=== PATIENT | female | born 1965 | race Caucasian/White ===

== ENCOUNTER 2016-12-23 01:17 | Inpatient (IN) ==
[2016-12-23 02:31] LABS: MANUAL DIFF NEEDED? NO
[2016-12-23 02:55] LABS: AGAP 16; ALBUMIN 3.9 g/dL (3.5-5.0); ALKALINE PHOSPHATASE 86 U/L (32-104); BASO% 0.2 % (0.0-0.8); BUN 14 mg/dL (8-22); CHLORIDE 92 mmol/L (98-107); COSMO 281; EOS# 0.03 X1000 (0.0-0.7); EOS% 0.3 % (0.0-10.0); GOT 39 U/L (10-30); GPT 40 U/L (10-36); HEMATOCRIT 40.2 % (37.0-47.0); HEMOGLOBIN 14.2 g/dL (12.0-16.0); IMM GRAN# 0.02 X1000 (0.0-0.04); IMM GRAN% 0.2 % (0.0-0.5); LYMPH# 1.32 X1000 (1.2-3.4); LYMPH% 11.1 % (20.5-51.1); MCH 31.1 PG (27-31); MCHC 35.3 g/dL (33-37); MONO# 0.49 X1000 (0.11-0.59); MONO% 4.1 % (1.7-9.3); MPV 10.4 FL (7.4-10.4); NEUT% 84.1 % (42.2-75.2); PLT 178 X1000 (130-400); POTASSIUM 3.6 mmol/L (3.5-5.1); RBC 4.57 XMIL (4.2-5.4); SODIUM 132 mmol/L (136-145); TCO2 24 mmol/L (25-35); TOTAL PROTEIN 7.2 g/dL (6.3-8.3)
[2016-12-23] MEDS ORDERED: PERCOCET-5 PO ONE (03:01)
[2016-12-23] MEDS ORDERED: ZOFRAN ONE (03:17)
[2016-12-23] MEDS ORDERED: ZOFRAN IV ONE (03:23)
[2016-12-23] MEDS ORDERED: MORPHINE IV ONE (03:24)
[2016-12-23] MEDS ORDERED: HUMULIN R SUBQ ONE (04:04)
[2016-12-23] MEDS ORDERED: VANCOMYCIN IV PER PHARMACY MISC SCH (04:15)
--- NOTE | 2016-12-23 04:19 | PROVIDER DOCUMENTATION ---
This chart was entered by Felicia Martinez Scribe, acting as scribe for Srikanth Echavarria MD. HPI-General Adult - General Chief Complaint: Fever Stated Complaint: ARM PAIN Time Seen by Provider: 12/23/16 02:14 Source: patient Allergies/Adverse Reactions: Patient Allergies Allergy/AdvReac Type Severity Reaction Status Date / Time adhesive Allergy HIVES Verified 12/23/16 01:57 Latex, Natural Rubber Allergy RASH Verified 12/23/16 01:57 Home Medications: Home Medication List Medication Instructions Recorded Confirmed Last Taken Type LISINOpril [Prinivil] 10 mg PO DAILY 10/06/12 05/03/16 04/27/16 07:30 History Aspirin 81 mg PO DAILY 03/19/13 05/03/16 04/27/16 07:30 History Metformin E.r. [Glucophage Xr] 1,000 mg PO QAM 04/13/15 05/03/16 04/27/16 07:30 History Metformin E.r. [Glucophage Xr] 500 mg PO WSUPPER 04/13/15 05/03/16 04/26/16 20: 30 History Metoprolol [Lopressor] 25 mg PO BID 07/26/15 05/03/16 04/27/16 07:30 History ATORVAstatin [Lipitor] 20 mg PO QHS #30 tablet 04/29/16 05/03/16 Unknown Rx CefTRIAXONE 2 GM/NS [Rocephin 2 2 gm IV DAILY #1 ivpb 04/29/16 05/03/16 Unknown Rx gm/Ns] Insulin Glargine [Lantus] 30 unit SUBQ QHS #1 insuln.pen 04/29/16 05/03/16 Unknown Rx Magnesium Oxide [Mag-Ox] 800 mg PO BID #60 tablet 04/29/16 05/03/16 Unknown Rx Vancomycin/0.9 % Sod Chloride 2 gm IV DAILY #1 plast..bag 04/29/16 05/03/16 Unknown Rx [Vancomycin-0.9% NaCl 2 G/500] - History of Present Illness -Gen Adult Nature of Presenting Problems: pt is a 51 year old female who came to the ED with a cc of fever and N/V and left arm swelling. pt reports she has a hx of mastectomy in 2009. Pt reports she has a hx of cellulitis in her left arm. Location of Pain/Injury: reports: upper extremity (left arm) Pain Radiation: reports: no radiation Quality of Pain: reports: none Onset/Duration: reports: just prior to arrival Timing: reports: still present Context/Activities at Onset: reports: none Modifying Factors: improves with: nothing Associated Symptoms: reports: nausea, vomiting, weakness Similar Symptoms Previously?: No Recently seen or treated by another doctor?: No Review of Systems - Adult - REVIEW OF SYSTEMS - ADULT Constitutional: reports: chills, fever. denies: fatique, weight loss Ears, Nose, Mouth & Throat: denies: ear pain, loose teeth Respiratory: denies: cough, shortness of breath Gastrointestinal: reports: nausea, vomiting. denies: abdominal pain, difficulty swallowing, frequent heartburn Integumentary: reports: other (swelling of the left arm). denies: mole changes , nail changes Past History - Adult - PAST MEDICAL HISTORY-ADULT Review of Records: reports: Old Records Reviewed, Nursing Assessment Review, Medications Reviewed, Social history reviewed & non-contributory. Major Childhood Illnesses: reports: denies history Cardiovascular: reports: HTN Respiratory: reports: denies history Gastrointestinal: reports: denies history Obstetrical/Gynecological: reports: denies history Genitourinary: reports: denies history Musculoskeletal: reports: denies history Neurological: reports: denies history Endocrine/Immune: reports: Diabetes Other Conditions: reports: denies history - PRIOR SURGERIES/PROCEDURES Surgical/Procedure History: reports: cholecystectomy, hysterectomy, other ( bilateral mastectomy) - IMMUNIZATION STATUS Childhood Immunizations: See Nurse Assessment Flu Vaccine: See Nurse Assessment - FAMILY HISTORY Family History: reviewed, not pertinent Physical Exam-General - PHYSICAL EXAM-ADULT Initial Vital Signs Reviewed: Yes - CONSTITUTIONAL General Appearance: alert, mild distress - EYES Eyes: PERRL/EOMI, pink conjunctivae - HEAD, EARS, NOSE, MOUTH & THROAT HENMT: normocephalic/atraumatic, moist mucous membranes, normal ENT inspection - NECK Neck: supple, normal inspection - RESPIRATORY Respiratory: chest non-tender, lungs clear, normal breath sounds - CARDIOVASCULAR Cardiovascular: normal peripheral pulses, regular rate, rhythm, no edema - GASTROINTESTINAL (ABDOMEN) Abdominal Exam: normal bowel sounds, non tender, soft - LYMPHATIC Lymphatic: no adenopathy - MUSCULOSKELETAL Back Exam: normal inspection, no CVA tenderness, no vertebral tenderness Extremity: normal range of motion, swelling (left arm) - SKIN Integumentary: normal color, normal turgor, warm/dry - NEUROLOGIC Neurologic: grossly normal, no motor/sensory deficits - PSYCHIATRIC Psych/Mental Status: normal mood/affect, normal thought content, normal thought process, oriented x 3 Progress - PLAN OF CARE/RESULTS Progress/Plan/Lab Results: Vital Signs - 8 hr 12/23/16 01:25 Temperature 100.1 F H Pulse Rate 110 H Respiratory Rate 20 Blood Pressure 153/86 O2 Sat by Pulse Oximetry 97 Orders Category Date Time Status BLOOD CULTURE [BLDCUL] Stat Lab 12/23/16 02:05 Ordered CBC WITH ELECTRONIC DIFF [HEME] Stat Lab 12/23/16 02:05 Received COMPREHENSIVE METABOLIC PANEL [CHEM] Stat Lab 12/23/16 02:05 Received Result Diagrams: 12/23/16 02:05 12/23/16 02:05 Departure - Departure Date of Disposition Decision: 12/23/16 Time of Disposition Decision: 04:17 DIAGNOSIS: Bacteremia associated with intravascular line Qualifiers: Encounter type: initial encounter Qualified Code(s): T82.7XXA - Infection and inflammatory reaction due to other cardiac and vascular devices, implants and grafts, initial encounter; R78.81 - Bacteremia Disposition: ADMITTED INPATIENT 09 Certified Medical Emergency: Emergent Condition: Fair Referrals and Follow-Ups: Carlo Pace MD [Primary Care Provider] - - Critical Care Note This patient required my direct & personal management of CC.: No This chart was documented by the indicated scribe, (Felicia Martinez Scribe) and accurately reflects the services I performed and decisions made by me, Srikanth Echavarria MD, as attested by the provider's signature.
[2016-12-23 04:57] LABS: URINE MICRO REVIEW NEEDED? NO; URINE SOURCE CLEAN CATCH
[2016-12-23] MEDS ORDERED: VANCOMYCIN 2,000 MG in NS 500 ML IV ONE (05:00)
[2016-12-23 05:07] LABS: BILIRUBIN URINE NEGATIVE (NEGATIVE); BLOOD URINE NEGATIVE (NEGATIVE); COLOR YELLOW; GLUCOSE URINE >1000 mg/dL (NEGATIVE); LEUKOCYTES URINE TRACE (NEGATIVE); NITRITE URINE NEGATIVE (NEGATIVE); PH URINE 6.5; PROTEIN URINE NEGATIVE (NEGATIVE); SP GRAVITY URINE 1.017; TURBIDITY URINE CLEAR (CLEAR); UROBILINOGEN URINE NORMAL (NORMAL)
[2016-12-23 05:08] LABS: UR EPITHELIAL CELLS <10 /HPF (<10); URINE BACTERIA 1+ /HPF; URINE CULTURE NEEDED? YES; URINE RBC <10 /HPF (<10); URINE WBC <10 /HPF (<10)
[2016-12-23] MEDS ORDERED: NS 1,000 ML IV ONE (05:13)
[2016-12-23] MEDS ORDERED: ZOFRAN IV PRN (06:15)
[2016-12-23 06:17] LABS: INR 1.01; PROTIME 10.6 Seconds (9.2-11.7); PTT 26.4 Seconds (22.0-36.0)
[2016-12-23 06:24] LABS: HEMOGLOBIN A1C 9.6 % (4.8-6.0)
[2016-12-23] MEDS: HUMALOG SUBQ SCH ×4 (06:50→20:46)
[2016-12-23] MEDS: CLINDAMYCIN 600 MG/NS 600 MG/50 ML IVPB IV SCH ×2 (08:22→13:20)
[2016-12-23] MEDS: TYLENOL PO PRN ×2 (08:22→15:51)
[2016-12-23] MEDS: LOPRESSOR PO SCH ×2 (08:22→20:35)
[2016-12-23] MEDS: ASPIRIN PO SCH (08:22)
[2016-12-23] MEDS: NS 1,000 ML IV SCH ×2 (08:23→20:50)
[2016-12-23] MEDS: MAG-OX PO SCH ×2 (08:23→20:35)
[2016-12-23] MEDS: PRINIVIL PO SCH (08:23)
--- NOTE | 2016-12-23 14:41 | HISTORY AND PHYSICAL ---
PRIMARY CARE PROVIDERS: Dr. Carlo Pace. CHIEF COMPLAINT: Fever, erythema and swelling to left upper extremity. HISTORY OF PRESENT ILLNESS: Ms Ramirez is a 51-year-old female, with past medical history most notable for breast cancer for which she had a double mastectomy with lymph node removal performed. Since then, the patient has had problems with lymphedema as well as a recurrent left upper extremity cellulitis. She reports that for the past few weeks she has noticed some increased swelling in her left upper extremity. She states that she noticed that she had increased pain, erythema and fever onset yesterday at approximately 10 p.m. The patient stated that since she knew she had a history of having cellulitis that she decided to go ahead and come on in for further evaluation. Other than these symptoms, she does report that her fingerstick blood sugars have been somewhat uncontrolled and that she has had polydipsia and polyuria. She denies any dizziness, shortness of breath, cough chest pain, abdominal pain , nausea, vomiting, diarrhea, or constipation. She denies any dysuria or urinary frequency. The patient does have some chronic swelling in her bilateral lower extremities. She states that this is not any worse at this time. She did report a headache upon arrival to the ER but after being given Percocet as well as morphine this has improved at this time. Upon my evaluation in the ER, the patient was found to have some mild leukocytosis. Her left upper extremity was found to have warmth, erythema, swelling and tenderness noted. Blood cultures have been obtained. She has been given a dose of vancomycin in the ER. At this time we will admit the patient for further treatment evaluation of her left upper extremity cellulitis. REVIEW OF SYSTEMS: A 12 point review of systems was conducted with the patient. All were negative except for pertinent positives mentioned above HPI. PAST MEDICAL HISTORY: 1. Breast cancer with her last chemo treatment being in 2010. She is now status post double mastectomy. 2. Diabetes mellitus type 2. 3. Hypertension. 4. Recurrent left forearm cellulitis. PAST SURGICAL HISTORY: 1. Hysterectomy. 2. Status post double mastectomy. 3. Cholecystectomy. 4. section. 5. Three back surgeries. 6. Tonsillectomy. 7. Placement of left chest port. SOCIAL HISTORY: The patient reports that she drinks approximately a glass of wine per month though other than this has no other tobacco, alcohol or illicit drug use. She does live at home with her . FAMILY HISTORY: Positive for her mother passing away secondary to lung cancer. She also had a history of diabetes. There is also history of heart disease in her grandparents. ALLERGIES: She reports allergies to adhesive latex and natural rubber. Home medications 1. Metoprolol 25 mg p.o. b.i.d. 2. Metformin extended release 1000 mg p.o. q.a.m. and 500 mg p.o. with supper. 3. Meloxicam 15 mg p.o. daily. 4. Magnesium oxide 800 mg p.o. b.i.d. 5. Lisinopril 10 mg p.o. daily. 6. Lantus 25 units subcutaneous at bedtime. 7. Aspirin 81 mg p.o. daily. DIAGNOSTIC DATA/LABORATORY RESULTS: White blood cell count 11.86, hemoglobin 14.2, hematocrit 40.2, platelet count is 178,000. PT 10.6, INR 1.01, PTT is 26.4. Sodium 132, potassium 3.6, chloride 92, bicarb 24, BUN 14, creatinine 0.9. GFR greater than 60. Glucose 381. Hemoglobin A1c 9.6, calcium 9, magnesium 1.1, total bilirubin is 1.4, AST 39, ALT 40, plasma lactate 3. Urinalysis was obtained via clean catch, was positive for greater than 1000 glucose, ketones and trace leukocytes with 1+ bacteria. Pending diagnostic studies at this time are blood cultures and urine culture. PHYSICAL EXAMINATION: VITAL SIGNS: Temperature 100.1 degrees, heart rate 97, respirations 19, blood pressure 136/83, oxygen saturation is 98% room air. GENERAL: MS Ramirez is a pleasant 51-year-old female who was resting comfortably in the ER stretcher. She was in no acute distress. She was awake, alert, and able to answer all questions appropriately. HEENT: Head is atraumatic, normocephalic. Pupils are equal, round, reactive to light, were 3 mm bilaterally and brisk. Conjunctivae were pink. Oral mucosa is moist. Oropharynx clear. NECK: Supple. Trachea midline. CARDIOVASCULAR: Patient has normal S1, S2. There is a 2/6 systolic murmur noted. No other gallops or rubs present. She has a regular rate and rhythm. PULMONARY: Patient has symmetrical chest expansion bilaterally. Lungs are clear to auscultation bilateral full ngo. ABDOMEN: Soft, nontender. Does not appear to be distended though the patient does have a protuberant abdomen noted. Bowel sounds were present in all 4 quadrants, were normoactive. EXTREMITIES: The patient does have left upper extremity swelling, erythema, warmth and tenderness noted upon palpation. The swelling in her left upper extremity extends from her shoulder all the way down to her hand. Pulse, motor and sensory is intact in this extremity distally. Capillary refill is less than 3. The patient does have some swelling in her lower extremities though this is nonpitting at this time. She does have some evidence of vascular disease. Pulse, motor and sensory is intact in all extremities. Pedal pulses were 3+ bilaterally. Capillary refill is intact in all other extremities as well. INTEGUMENTARY: The patient's skin is pink, warm, dry and intact. No lesions or sores noted but the patient does have some slight flushing noted to her face. NEUROLOGICAL: Patient is alert, oriented x4. Cranial nerves 2-12 are grossly intact. ASSESSMENT AND PLAN: 1. Left upper extremity cellulitis. For this we have placed the patient on vancomycin as well as clindamycin. Blood cultures have been obtained as well. The patient does have some mild leukocytosis noted as well and has been febrile. We will treat her temperature with Tylenol p.r.n. and will closely monitor her and await culture results. 2. Leukocytosis. This is likely related to her cellulitis. We will continue to monitor. 3. Diabetes mellitus type 2. Patient's hemoglobin A1c was elevated at 9.6. She normally takes metformin with Lantus at night though given her current infection as well as she did report that her fingerstick blood sugars at home have been uncontrolled we will place her on a sliding scale lispro insulin for better control. We will continue her Lantus and we will do fingerstick blood sugars a.c. and at bedtime and continue to monitor closely. 4. Fluid volume depletion. The patient was given a normal saline bolus in the ER. We will continue normal saline at 100 mL/h x2 bags and will reevaluate. Will do strict intake and output as well q.8 hours. 5. Hypertension. We will continue the patient's lisinopril and metoprolol. We will continue to follow. 6. The patient will be placed on the medical floor with telemetry. She will have vital signs q.4 hours. We will do strict intake and output fingerstick blood sugars, incentive spirometry. She will be on a diabetic diet. We have ordered an EKG to be performed and are awaiting these results. We will repeat a CBC, CMP and magnesium tomorrow. The patient's magnesium was slightly low though we will continue her magnesium oxide. Further orders and recommendations pending hospital course, diagnostic studies and physician evaluation. TIME: 0500 Dictated by JOLENE Huang for Candy Russell MD Seen,examined and discussed plan of care with JALOUSIE INSTALLER cc: Candy Russell MD [facility]
[2016-12-23] MEDS: NORCO-5 PO PRN ×2 (16:54→23:15)
[2016-12-23] MEDS: VANCOMYCIN 1,700 MG in NS 250 ML IV SCH (17:00)
--- NOTE | 2016-12-23 18:30 | Diag Imaging Result Doc PS360 ---
EXAM: EXTREM UPPER W/O CONTRAST HISTORY: rule out abscess TECHNIQUE: CT of the left arm bony algorithm no contrast COMMENT: Soft tissue detail is somewhat suboptimal due to the use of the bony algorithm. No determination can be made as far as the vascularity or possibility of enhancement as the study was ordered without contrast. There is no evidence of bony erosion, fracture, dislocation, or periosteal reaction. There is extensive subcutaneous edema throughout the left forearm from the elbow to the wrist. There is some edema over the dorsum of the hand as well. There is no identifiable focal fluid collection to suggest an abscess. IMPRESSION: Generalized subcutaneous soft tissue edema. No evidence of acute bony disease. Possibility of cellulitis and/or lymphedema cannot be excluded. Electronically signed by Bienvenido Duarte 12/23/2016 6:28 PM
[2016-12-23] MEDS: LANTUS SUBQ SCH (21:50)
--- NOTE | 2016-12-23 22:23 | CONSULTATION ---
DATE OF CONSULTATION: 12/23/2016 CONCLUSION: The patient is admitted to the hospital with a left arm cellulitis. She has predisposed to developing cellulitis in either arm because she has had bilateral mastectomies with lymph node resections. RECOMMENDATIONS: I agree with decision to treat the patient with vancomycin pending further studies. I think clindamycin can be discontinued at this time. Also, I talked with the patient about elevating her left arm and she said she will elevate it as much and as often as she can. I said also, it would probably be a good idea to elevate the right arm too since it is swollen. DISCUSSION: The patient has had recurrent episodes of arm cellulitis ever since she has had her bilateral mastectomy with lymph node resection. For a while, she was taking penicillin as a preventative measure. However, she had an episode of cellulitis of the arm while on penicillin last December. We sent the patient home on low-dose Keflex, but it bothered her stomach too much and she has stopped that medication. She did well for a while until approximately 2 days ago when her left arm became more swollen. It was erythematous and warm. In the past day she has had nausea and dry heaves. Laboratory studies thus far show a CBC with a white count of 11,860, hemoglobin 14.2, platelet count is 178,000. The patient's PT is 10.6, PTT is 26.4. The patient's creatinine is 0.9. The GFR is greater than 60. The patient's glucose was 381. PAST MEDICAL HISTORY/REVIEW OF SYSTEMS: Eyes and ears: She denies difficulty hearing or seeing. Neck: No stiffness. Respiratory: No cough or shortness of breath. Cardiovascular: No chest pain or palpitations. GI: Please see above for the description of the patient's nausea and dry heaves, but no diarrhea. Genitourinary: No dysuria or flank pain. Endocrine: Patient is a diabetic, but she does not have thyroid disease. Hematologic: The patient does not have anemia or a bleeding tendency. The remainder of the patient's review of systems was completed and was negative. E LEARNING COORDINATOR HISTORY: She is a 1 para 1 AB 0. She delivered her child by . She has had a hysterectomy. PREVIOUS HOSPITALIZATIONS AND OPERATIONS: She has had a , hysterectomy, bilateral mastectomy with lymph node resection. She has had multiple [id number] put in and then having to be removed. She has also had a cholecystectomy and 3 surgeries on her spine, including placement of metal in the spine. MEDICAL DISEASES: Positive for breast cancer. Hypomagnesemia. Diabetes mellitus. Hypertension. Degenerative joint disease of the spine. INFECTIOUS DISEASE HISTORY: Positive for bilateral arm cellulitis and urinary tract infection. During 1 episode of cellulitis of the arm, she had a streptococcal bacteremia. FAMILY HISTORY: Positive for diabetes mellitus, hypertension, myocardial infarction, stroke, and cancer. SOCIAL HISTORY: The patient is . She lives in [place]. She rarely drinks a glass of wine. She does not smoke cigarettes or abuse drugs. ALLERGY: Adhesive tape and latex. HOME MEDICINES: Insulin, metformin, Mobic, lisinopril, aspirin, and Toprol. PHYSICAL EXAMINATION: Vital Signs: Temperature is 99.3 degrees, pulse 78, respirations 20, blood pressure 124/66, the patient's weight is listed as 297 pounds. General: This is an obese, middle- aged female. She is in no acute distress. Head, eyes, ears, nose, and throat: The patient's face appears to be swollen and erythematous, but she told me that is the usual way her face looks. She can hear my spoken words. She can see near objects. There were no white patches on her tongue. Neck: No meningismus. Breasts: The patient has had bilateral mastectomies. Lungs: Clear to auscultation. Cardiovascular: Regular heart rate. Abdomen: Obese, soft and nontender. Neurologic: Patient is alert. She can move her extremities, there is no tremor. Her sensation is intact to touch. Her memory, as regarding her medical history is intact. Extremities: Patient has edema in both legs and arms. The left arm is especially swollen. It is somewhat erythematous and it is much warmer than the right arm. Thank you for the consult. cc: Todd Chairez MD
[2016-12-24 05:23] LABS: MANUAL DIFF NEEDED? NO
[2016-12-24 05:31] LABS: BASO% 0.4 % (0.0-0.8); HEMOGLOBIN 13.5 g/dL (12.0-16.0); LYMPH% 25.7 % (20.5-51.1); MCH 30.5 PG (27-31); MCHC 33.8 g/dL (33-37); MCV 90.5 FL (81-99); MONO# 0.27 X1000 (0.11-0.59); MONO% 5.3 % (1.7-9.3); MPV 10.3 FL (7.4-10.4); NEUT% 66.6 % (42.2-75.2); PLT 164 X1000 (130-400); RBC 4.42 XMIL (4.2-5.4)
[2016-12-24] MEDS: VANCOMYCIN 1,700 MG in NS 250 ML IV SCH (05:38)
[2016-12-24 05:51] LABS: AGAP 11; ALBUMIN 3.4 g/dL (3.5-5.0); ALKALINE PHOSPHATASE 67 U/L (32-104); BUN 13 mg/dL (8-22); CALCIUM 8.5 mg/dL (8.8-10.2); CHLORIDE 100 mmol/L (98-107); COSMO 284; GOT 35 U/L (10-30); GPT 40 U/L (10-36); MAGNESIUM 1.5 mg/dL (1.5-2.7); POTASSIUM 4.1 mmol/L (3.5-5.1); SODIUM 138 mmol/L (136-145); TCO2 27 mmol/L (25-35); TOTAL BILIRUBIN 1.79 mg/dL (0.20-1.00); TOTAL PROTEIN 6.4 g/dL (6.3-8.3)
[2016-12-24] MEDS: HUMALOG SUBQ SCH ×4 (05:59→21:26)
[2016-12-24] MEDS: NORCO-5 PO PRN ×2 (07:40→21:40)
[2016-12-24] MEDS: PRINIVIL PO SCH (08:44)
[2016-12-24] MEDS: MAG-OX PO SCH ×2 (08:44→21:27)
[2016-12-24] MEDS: ASPIRIN PO SCH (08:44)
[2016-12-24] MEDS: LOPRESSOR PO SCH ×2 (08:44→21:25)
--- NOTE | 2016-12-24 14:34 | PROGRESS NOTE ---
DATE: 12/24/2016 SUBJECTIVE: Patient reports feeling less swelling and erythema in the left arm. OBJECTIVE: Vital signs: Temperature 97.8 degrees, heart rate 71, respiratory rate 18, blood pressure 113/71, O2 saturation 100% on room air. General: This is a 51-year- old female lying in bed, in no acute distress. HEENT: Head is normocephalic, atraumatic. Anicteric sclerae and pale conjunctivae. Mucous membranes moist. Neck: Supple. No JVD noted. No carotid bruits. No lymphadenopathy. No thyromegaly. Cardiovascular: S1, S2 heard. No murmurs, gallops, or rubs. Regular rate and rhythm. Respiratory: Clear bilaterally to auscultation. No work of breathing or using accessory muscles. Abdomen: Soft, nontender to palpation. Bowel sounds present. No organomegaly. Extremities: The left upper extremity swelling and edema and also warmth and tenderness are a little bit better, but definitely still swollen. Neurologic: Patient alert and oriented x4, moves 4 extremities. LABORATORY DATA: Reviewed. ASSESSMENT AND PLAN: 1. Left upper extremity cellulitis. We have ordered a CT of the extremities to rule out an abscess and that did not show any abscess. Because of suspicion for probably blood clot, we have ordered a Doppler ultrasound. The result is not available yet. At this point, we are going to continue with the same management. Dr. Chairez has been consulted and at this time , he preferred to keep this patient only on vancomycin, and clindamycin has been discontinued. 2. Diabetes mellitus type 2. Hemoglobin A1c was high, so at this point, we are going to continue checking fingersticks before meals and also at bedtime. 3. Hypertension. We will continue with lisinopril and metoprolol. cc: Stevie Murguia MD [facility]
--- NOTE | 2016-12-24 17:35 | PROGRESS NOTE ---
DATE: 12/24/2016 PRESENT ILLNESS: The patient has cellulitis of the left arm. She is predisposed to developing cellulitis in either arm because she has had bilateral mastectomies with lymph node resections. The patient also has a urinary tract infection with gram positive cocci. MEDICATIONS: The patient is receiving vancomycin. PHYSICAL EXAMINATION: Vital Signs: Temperature is 98.6 degrees, pulse 72, respiration is 18, blood pressure 121/61. Lungs: Clear to auscultation. Cardiovascular: Regular heart rate. Extremities: Both arms are swollen. The right arm is less swollen and it is not erythematous or warm. The left arm is more swollen, it is more firm. It is not erythematous today, it was last night though and it still is warmer than the right arm. LAB AND X-RAY: The patient's CBC shows a white count of 5060, hemoglobin 13.5, and platelet count 164,000. Creatinine is 0.8. GFR is greater than 60. The ALT is 40, the bilirubin is 1.79. Urine culture is growing a gram-positive coccus. The blood cultures are pending. CT scan of the arm showed edema. The patient's urinalysis shows no white cells but it does show 1+ bacteria. ASSESSMENT AND PLAN: The patient has cellulitis of the arm. I am going to put in a consult for [facility] in case the patient goes home on IV antibiotics. I am also going to switch her from vancomycin to Rocephin which simultaneously hopefully would clear her cellulitis in the arm and it may also have activity against her gram positive cocci urinary tract infection. I have also put a consult in for [facility] to supply home IV antibiotics for the patient if she needs it when she goes home, and also I plan to have the patient at the first sign she is getting return infection in her arm to call [facility] and tell them that she needs to start antibiotics right away, and the antibiotic right away that we would start would be Rocephin. Also at that time, we can have lab work and blood cultures drawn. COMORBIDITIES: The main one is the patient is obese and she has undergone bilateral mastectomies with lymph node resections with resulting chronic edema in her arms. cc: Todd Chairez MD
[2016-12-24] MEDS: ROCEPHIN 2 GM/NS 2 GM/50 ML IVPB IV SCH (18:52)
[2016-12-24] MEDS: LANTUS SUBQ SCH (21:27)
[2016-12-24] MEDS: TYLENOL PO PRN (22:45)
[2016-12-24] MEDS: PERCOCET-5 PO PRN (23:48)
[2016-12-25] MEDS: PERCOCET-5 PO PRN (03:39)
[2016-12-25] MEDS: ROCEPHIN 2 GM/NS 2 GM/50 ML IVPB IV SCH ×3 (06:38→20:02)
[2016-12-25] MEDS: HUMALOG SUBQ SCH ×4 (06:47→21:41)
[2016-12-25] MEDS: MAG-OX PO SCH ×2 (09:40→21:40)
[2016-12-25] MEDS: ASPIRIN PO SCH (09:40)
[2016-12-25] MEDS: LOPRESSOR PO SCH ×3 (09:40→21:46)
[2016-12-25] MEDS: PRINIVIL PO SCH (09:41)
--- NOTE | 2016-12-25 13:05 | PROGRESS NOTE ---
DATE: 12/25/2016 SUBJECTIVE: The patient reports feeling fine, denies any fevers or chills. Lessening erythema on the left arm. OBJECTIVE: Vital signs: Temperature 98.1, heart rate 64, respiratory rate 14, blood pressure 150/71, oxygen saturation 98% on room air. General: This is a 51-year-old female lying in bed in no acute distress. HEENT: Head is normocephalic and atraumatic. Anicteric sclerae. Pale conjunctivae. Mucous membranes moist. Neck: Supple, no JVD noted, no carotid bruits, no lymphadenopathy, no thyromegaly. Cardiovascular: S1, S2 heard, no murmurs, gallops, or rubs, and regular rate and rhythm. Respiratory: Clear bilaterally to auscultation. No work of breathing or using accessory muscles. Abdomen: Soft, nontender to palpation, bowel sounds present, no organomegaly. Extremities: Left upper extremity swelling with edema that is a little bit better when compared with yesterday. Neurological: Patient is alert and oriented x3, moves 4 extremities. ASSESSMENT AND PLAN: 1. Left upper extremity cellulitis. The Doppler ultrasound has not shown any DVT, and CT did not show any abscess. At this time, Dr. Chairez is following this patient and he recommends instead of vancomycin ceftriaxone which may treat also urinary tract infection. He is going to follow her upon discharge. 2. Diabetes mellitus type 2. Will continue with sliding scale insulin. 3. Hypertension. Will continue with home medications lisinopril and metoprolol. cc: Stevie Murguia MD
[2016-12-25] MEDS: LANTUS SUBQ SCH (21:41)
[2016-12-26] MEDS: TYLENOL PO PRN (00:52)
[2016-12-26 06:01] LABS: MANUAL DIFF NEEDED? NO
[2016-12-26 06:08] LABS: BASO% 0.5 % (0.0-0.8); EOS# 0.13 X1000 (0.0-0.7); EOS% 3.2 % (0.0-10.0); HEMATOCRIT 39.3 % (37.0-47.0); HEMOGLOBIN 13.4 g/dL (12.0-16.0); LYMPH# 1.63 X1000 (1.2-3.4); LYMPH% 40.4 % (20.5-51.1); MCH 31.1 PG (27-31); MCHC 34.1 g/dL (33-37); MCV 91.2 FL (81-99); MONO# 0.35 X1000 (0.11-0.59); MONO% 8.7 % (1.7-9.3); MPV 10.1 FL (7.4-10.4); NEUT% 47.2 % (42.2-75.2); PLT 181 X1000 (130-400); RBC 4.31 XMIL (4.2-5.4)
[2016-12-26 06:31] LABS: AGAP 10; BUN 13 mg/dL (8-22); CALCIUM 8.9 mg/dL (8.8-10.2); CHLORIDE 101 mmol/L (98-107); COSMO 283; POTASSIUM 4.1 mmol/L (3.5-5.1); SODIUM 140 mmol/L (136-145); TCO2 29 mmol/L (25-35)
[2016-12-26] MEDS: HUMALOG SUBQ SCH ×4 (06:51→20:30)
[2016-12-26] MEDS: ROCEPHIN 2 GM/NS 2 GM/50 ML IVPB IV SCH ×2 (06:51→17:54)
[2016-12-26] MEDS: ASPIRIN PO SCH (08:47)
[2016-12-26] MEDS: PRINIVIL PO SCH (08:47)
[2016-12-26] MEDS: MAG-OX PO SCH ×2 (08:47→23:44)
[2016-12-26] MEDS: LOPRESSOR PO SCH ×2 (08:47→23:49)
--- NOTE | 2016-12-26 17:44 | PROGRESS NOTE ---
DATE: 12/26/2016 SUBJECTIVE: Patient reports feeling fine, less swelling and reddening in the left arm. OBJECTIVE: Vital Signs: Temperature 99.3 degrees, heart rate 59, respiratory rate 20, blood pressure 110/68, O2 saturation 97% on room air. General: This is a 51-year-old obese female lying in bed, in no acute distress. HEENT: Head is normocephalic, atraumatic. Anicteric sclerae and pale conjunctivae. Mucous membranes moist. Neck supple. JVD is not possible to evaluate because of the neck girth. Cardiovascular: S1, S2 heard. No murmurs, gallops, or rubs. Regular rate and rhythm. Respiratory: Clear bilaterally to auscultation. No work of breathing or using accessory muscles. Abdomen: Soft, nontender to palpation. Bowel sounds present. No organomegaly. Extremities: No clubbing, cyanosis, or edema. Peripheral pulses present in both legs. Neurological: Patient is alert and oriented x3. Moves 4 extremities. Cranial nerves II x XII grossly normal in both extremities and both lower extremities are swollen, but in the left, there is less swelling and reddening. ASSESSMENT AND PLAN: 1. Left upper extremity cellulitis. Patient is doing good. Currently, as per Dr. Chairez, this patient is on ceftriaxone. We will continue with same management. We checked with him because apparently he has decided to send this patient home with ceftriaxone 2 g q.12 hours for 1 week. We will check on her tomorrow morning and will discharge her home with IV home medications. 2. Diabetes mellitus type 2. We will continue with the sliding scale insulin. 3. Hypertension. Blood pressure is stable. Continue with metoprolol. cc: Stevie Murguia MD
[2016-12-26] MEDS: LANTUS SUBQ SCH (23:49)
[2016-12-27 06:12] LABS: MANUAL DIFF NEEDED? NO
[2016-12-27 06:26] LABS: BASO% 0.7 % (0.0-0.8); EOS# 0.12 X1000 (0.0-0.7); EOS% 2.7 % (0.0-10.0); HEMATOCRIT 41.6 % (37.0-47.0); LYMPH# 1.59 X1000 (1.2-3.4); MCH 30.6 PG (27-31); MCHC 33.7 g/dL (33-37); MCV 90.8 FL (81-99); MONO# 0.41 X1000 (0.11-0.59); MONO% 9.3 % (1.7-9.3); MPV 10.1 FL (7.4-10.4); NEUT% 51.3 % (42.2-75.2); PLT 201 X1000 (130-400); RBC 4.58 XMIL (4.2-5.4)
[2016-12-27 06:37] LABS: AGAP 12; BUN 12 mg/dL (8-22); CALCIUM 9.7 mg/dL (8.8-10.2); CHLORIDE 98 mmol/L (98-107); COSMO 280; POTASSIUM 4.2 mmol/L (3.5-5.1); SODIUM 138 mmol/L (136-145); TCO2 28 mmol/L (25-35)
[2016-12-27] MEDS: ROCEPHIN 2 GM/NS 2 GM/50 ML IVPB IV SCH (06:54)
[2016-12-27] MEDS: HUMALOG SUBQ SCH ×2 (06:54→11:19)
[2016-12-27] MEDS: PRINIVIL PO SCH (08:04)
[2016-12-27] MEDS: MAG-OX PO SCH (08:04)
[2016-12-27] MEDS: ASPIRIN PO SCH (08:04)
[2016-12-27] MEDS: LOPRESSOR PO SCH (08:04)
[2016-12-27] MEDS: TYLENOL PO PRN (08:20)
--- NOTE | 2016-12-27 09:12 | Extremity Venous Study ---
PROCEDURE NAME: Venous U/S Left Arm - 12/23/2016 LEFT UPPER EXTREMITY VENOUS ULTRASOUND: FOUNDER PRESIDENT AND CEO: Clarice. INDICATION: Severe edema. Patient has a history of lymphedema post mastectomy with presumed axillary dissection. FINDINGS: The deep and superficial veins of the left upper extremity were visualized along their course. All veins were compressible with no evidence of intraluminal thrombus and maintained flow. SUMMARY: No deep or superficial venous thrombosis seen in the left upper extremity. cc: MD Stevie Spencer MD
--- NOTE | 2016-12-27 09:17 | PROGRESS NOTE ---
DATE: 12/27/2016 PRESENT ILLNESS: The patient has cellulitis of the left arm due to the fact that she has had bilateral mastectomies with lymph node resections. The patient also had a urinary tract infection with group B strep. MEDICATIONS: The patient currently is receiving Rocephin 2 g IV every 12 hours. PHYSICAL EXAMINATION: Vital Signs: Temperature is 98.6 degrees, pulse 65, respirations 18, blood pressure 126/65. General: This is an obese, middle-aged female. She is in no acute distress. Lungs: Clear to auscultation. Cardiovascular: Regular heart rate. Abdomen: Soft and nontender. Chest: The patient has a Port-A-Cath in place. The site is not erythematous or swollen. Extremities: The patient's left arm is more swollen than the right and it also is noticeably warmer than the right arm. LAB AND X-RAY: CBC today shows a white count of 4,420, hemoglobin 14, and platelet count 201,000. Creatinine 0.7. GFR is greater than 60. There is no new radiographic study. ASSESSMENT AND PLAN: Patient has cellulitis of the arm. The plan is to send her home today on Rocephin 2 g IV every 12 hours. I have requested that the patient see me in the office 1 week after discharge. I told her that if her arm felt okay she could just cancel the appointment and we would have to de-access her Port-A-Cath also. I also plan with the patient that if she should feel at home that she is going to breakout with cellulitis in the arm and she is not having any fever or shaking chills or nausea or vomiting, that she could just call [facility] and they would go ahead and start her on Rocephin 2 g IV every 12 hours and they would notified me that the patient has been started. Also I requested that they draw a CBC, creatinine, and 2 blood cultures. The patient's comorbidities, she is obese and she also has had bilateral mastectomies with lymph nodes resected with resulting chronic edema in both arms. cc: Todd Chairez MD
[2016-12-27 10:47] VITALS: BP 119/75
--- NOTE | 2016-12-28 12:43 | DISCHARGE SUMMARY ---
ADMISSION DATE: 12/23/2016 DISCHARGE DATE: 12/27/2016 CONSULTATIONS: Dr. Todd Chairez with infectious disease. PERTINENT PROCEDURES: Upper extremity CT showed generalized subcutaneous soft tissue edema. No evidence of acute bony disease. The possibility of cellulitis and/or lymphedema could not be excluded. Left arm venous Doppler showed no deep or superficial venous thrombosis seen in the left upper extremity. DISCHARGE DIAGNOSES: 1. Left upper extremity cellulitis. The patient is being discharged home on Rocephin with [facility]. Will follow up with Dr. Todd Chairez in 1 week. 2. Diabetes mellitus type 2. Continue home medications. 3. Hypertension. Continue on metoprolol and Prinivil. 4. Breast cancer. Last chemotherapy treatment being in 2010 now status post double mastectomy. HOSPITAL COURSE: Ms. Ramirez is a 51-year-old female who carries a past medical history notable for breast cancer, last chemo treatment was in 2010, now status post double mastectomy with lymph node removal performed. Since then, the patient has had problems with lymphedema as well as recurrent left upper extremity cellulitis. She reported that for the past few weeks she noticed some increased swelling in her left upper extremity. Increased pain, erythema, and fever, onset the day before her admission. In the ED she was felt to have mild leukocytosis. Her left upper extremity was found to be warm, erythematous with tenderness blood cultures were obtained. She was given a dose of IV vancomycin. She underwent an upper extremity CT that showed generalized subcutaneous soft tissue edema. No evidence of acute bony disease, possibility of cellulitis and/or lymphedema could not be excluded. Her left arm venous Doppler did not show any deeper or superficial venous thrombosis. Dr. Todd Chairez was consulted. He agreed with the decision to treat the patient with vancomycin. He did discontinue the clindamycin that had been add. He also talked to the patient about elevating the left arm, as well as elevating the right arm too as much as possible. She was also noted to have a urinary tract infection that was going out a gram- positive cocci that was growing strep agalactiae. Blood cultures remained negative. Dr. Chairez put in a consult for [facility] to supply the patient with IV antibiotics with Rocephin. He also has a plan to have the patient at the 1st sign, if she is getting a return infection in her arm to call [facility] and tell them that she needs to start antibiotics right away and that they would start Rocephin and after that time they would draw lab work as well as blood cultures in his office, because she is predisposed to developing cellulitis in either arm because of her bilateral mastectomies within lymph node resections. Patient has remained afebrile since admission. Her white count has gone from 11 to 4. She is appropriate for discharge home today with IV antibiotics. VITAL SIGNS: Temperature is 98 degrees, heart rate 59, respirations 20, blood pressure is 119/75, O2 is 99% on room air. DISCHARGE DIET: Diabetic. DISCHARGE MEDICATIONS: 1. Aspirin 81 mg p.o. daily. 2. Lantus 25 units subcutaneous at bedtime. 3. Prinivil 10 mg p.o. daily. 4. Magnesium oxide 800 mg p.o. b.i.d. 5. Mobic 15 mg p.o. daily. 6. Glucophage XR 500 mg p.o. with supper. 7. Glucophage XR 1000 mg p.o. q.a.m. 8. Lopressor 25 mg p.o. b.i.d. 9. Rocephin 2 g IV every [address] Todd Chairez. FOLLOWUP: The patient is being discharged home. She will follow up with Dr. Todd Chairez in 1 week. She can follow up with Dr. Pace in 7-10 days. Her IV antibiotics will be supplied with [facility]. Again, the patient has been advised after this treatment at the 1st sign that the patient feels like she is getting a return infection her arm to call [facility] and tell them that she needs to start antibiotics right away and they will go ahead and start Rocephin and at that time she can come to Dr. Todd Chairez' office and they can do lab work and have blood cultures drawn. Patient can return to the ED for any worsening of symptoms. DISCHARGE TIME: 32 minutes. Dictated by JOLENE Patino for Stevie Murguia MD cc: MD Carlo No MD [facility]
== END 2016-12-27 13:53 | disposition home or self-care (01) ==
LOC: ED 01:17 → SUATTDRO 05:43 → 4N 05:43
PROVIDERS: ATTEND Internal Medicine

== ENCOUNTER 2019-03-13 05:21 | Inpatient (IN) ==
--- NOTE | 2019-02-07 08:21 | EKG Report ---
Test Performed on : 02/07/2019 08:07:37 AM Test Reason : PAT Blood Pressure : / mmHG Vent. Rate : 060 BPM Atrial Rate : 060 BPM P-R Int : 154 ms QRS Dur : 082 ms QT Int : 420 ms P-R-T Axes : 016 -07 023 degrees QTc Int : 420 ms Normal sinus rhythm. Normal ECG When compared with ECG of 28-APR-2016 07:02, No significant change was found Confirmed by Bradly RAHMAN, Chavo Richardson ([id number]) on 02/07/2019 5:21:53 PM
[2019-02-07 08:41] LABS: URINE SOURCE CLEAN CATCH
[2019-02-07 08:51] LABS: BASO# 0.03 X1000 (0.0-0.2); BASO% 0.4 % (0.0-0.8); EOS# 0.14 X1000 (0.0-0.7); EOS% 1.9 % (0.0-10.0); HEMATOCRIT 40.5 % (37.0-47.0); HEMOGLOBIN 13.6 g/dL (12.0-16.0); LYMPH# 2.23 X1000 (1.2-3.4); LYMPH% 30.3 % (20.5-51.1); MCH 30.6 PG (27-31); MCHC 33.6 g/dL (33-37); MCV 91.2 FL (81-99); MONO# 0.49 X1000 (0.11-0.59); MONO% 6.6 % (1.7-9.3); NEUT# 4.48 X1000 (1.4-6.5); NEUT% 60.8 % (42.2-75.2); PLT 207 X1000 (130-400); RBC 4.44 XMIL (4.2-5.4); RDW 12.3 % (11.5-14.5); WBC 7.37 X1000 (4.8-10.8)
[2019-02-07 08:54] LABS: INR 1.04; PROTIME 13.7 Seconds (11.0-16.0)
[2019-02-07 08:55] LABS: BILIRUBIN URINE NEGATIVE (NEGATIVE); BLOOD URINE TRACE (NEGATIVE); COLOR YELLOW; GLUCOSE URINE >1000 mg/dL (NEGATIVE); KETONE URINE NEGATIVE (NEGATIVE); LEUKOCYTES URINE SMALL (NEGATIVE); NITRITE URINE NEGATIVE (NEGATIVE); PROTEIN URINE TRACE mg/dL (NEGATIVE); PTT 24.5 Seconds (22.3-41.8); SP GRAVITY URINE 1.017; TURBIDITY URINE HAZY (CLEAR); UROBILINOGEN URINE NORMAL (NORMAL)
[2019-02-07 08:56] LABS: UR EPITHELIAL CELLS >10 /HPF (<10); URINE BACTERIA 4+ /HPF; URINE RBC <10 /HPF (<10); URINE WBC 20-40 /HPF (<10)
[2019-02-07 08:59] LABS: HEMOGLOBIN A1C 10.7 % (4.8-6.0)
[2019-02-07 09:10] LABS: AGAP 13; BUN 18 mg/dL (8-22); CALCIUM 9.4 mg/dL (8.8-10.2); CHLORIDE 100 mmol/L (98-107); COSMO 292; CREATININE 0.7 mg/dL (0.5-0.9); ESTIMATED GFR > 60; GLUCOSE 296 mg/dL (70-104); POTASSIUM 4.2 mmol/L (3.5-5.1); SODIUM 140 mmol/L (136-145); TCO2 27 mmol/L (25-35)
[2019-03-13] MEDS ORDERED: PEPCID ONE (05:54)
[2019-03-13] MEDS ORDERED: LYRICA ONE (05:54)
[2019-03-13] MEDS ORDERED: KEFZOL 1 GM/D5W 2 GM/100 ML IVPB ONE (05:54)
[2019-03-13] MEDS ORDERED: CELEBREX ONE (05:54)
[2019-03-13] MEDS ORDERED: COLACE ONE (05:54)
[2019-03-13] MEDS ORDERED: REGLAN ONE (05:54)
[2019-03-13] MEDS ORDERED: LR 1,000 ML ONE (05:55)
[2019-03-13] MEDS ORDERED: DIPRIVAN 1% 0 MG/0 ML BOTTLE ONE (06:18)
[2019-03-13 06:43] LABS: HEMOGLOBIN A1C 7.6 % (4.8-6.0)
[2019-03-13] MEDS ORDERED: DIPRIVAN 1% ONE (06:49)
[2019-03-13] MEDS ORDERED: ZOFRAN ONE ×2 (06:49→07:59)
[2019-03-13] MEDS ORDERED: FENTANYL ONE (06:50)
[2019-03-13] MEDS ORDERED: DURAMORPH ONE (06:51)
[2019-03-13] MEDS ORDERED: TORADOL ONE (06:52)
[2019-03-13] MEDS ORDERED: VANCOMYCIN ONE (06:52)
[2019-03-13] MEDS ORDERED: MARCAINE 0.25% PF ONE (06:52)
[2019-03-13] MEDS ORDERED: CYKLOKAPRON 1,000 MG/NS 2,000 MG/200 ML IVPB ONE (06:52)
[2019-03-13] MEDS ORDERED: SODIUM CHLORIDE 0.9% ONE (06:52)
[2019-03-13] MEDS ORDERED: EXPAREL 1.3% ONE (06:52)
[2019-03-13] MEDS ORDERED: ZEMURON ONE (07:58)
[2019-03-13] MEDS ORDERED: XYLOCAINE-MPF 2% ONE (07:59)
[2019-03-13] MEDS ORDERED: QUELICIN (DOSE) ONE (07:59)
[2019-03-13] MEDS ORDERED: DECADRON ONE (07:59)
[2019-03-13] MEDS ORDERED: OFIRMEV 1000 MG/ISOTONIC SOLN 1,000 MG/100 ML BOTTLE ONE (07:59)
[2019-03-13] MEDS ORDERED: XYLOCAINE 2% JELLY ONE (08:23)
[2019-03-13 09:15] LABS: URINE SOURCE CATH
[2019-03-13 09:19] LABS: BILIRUBIN URINE NEGATIVE (NEGATIVE); BLOOD URINE MODERATE (NEGATIVE); COLOR YELLOW; GLUCOSE URINE NEGATIVE (NEGATIVE); KETONE URINE TRACE mg/dL (NEGATIVE); LEUKOCYTES URINE NEGATIVE (NEGATIVE); NITRITE URINE NEGATIVE (NEGATIVE); PH URINE 5.5; PROTEIN URINE 70 mg/dL (NEGATIVE); SP GRAVITY URINE 1.028; TURBIDITY URINE HAZY (CLEAR); UROBILINOGEN URINE 2 mg/dL (NORMAL)
[2019-03-13 09:28] LABS: UR EPITHELIAL CELLS >10 /HPF (<10); URINE BACTERIA NEGATIVE /HPF; URINE RBC <10 /HPF (<10); URINE WBC <10 /HPF (<10)
[2019-03-13 09:47] LABS: URINE CASTS NONE SEEN
[2019-03-13] MEDS ORDERED: DEMEROL ONE (09:47)
[2019-03-13] MEDS ORDERED: NS 1,000 ML ONE (09:59)
[2019-03-13] MEDS ORDERED: MORPHINE IV PRN ×3 (10:00)
[2019-03-13] MEDS ORDERED: OXY IR PO PRN (10:00)
[2019-03-13] MEDS ORDERED: ZOFRAN IV PRN (10:00)
[2019-03-13] MEDS ORDERED: ZOFRAN ODT PO PRN (10:00)
--- NOTE | 2019-03-13 10:16 | Diag Imaging Result Doc PS360 ---
KNEE 1-2 VIEWS-LEFT - 03/13/2019 INDICATION: post op total knee TECHNIQUE: Two views COMPARISON: None FINDINGS: There has been left total knee arthroplasty with patellar resurfacing. Alignment is anatomic. No hardware fracture or loosening. IMPRESSION: No complication. Electronically signed by Espinoza Alarcon 03/13/2019 10:14 AM
[2019-03-13] MEDS ORDERED: OXY IR ONE (10:53)
--- NOTE | 2019-03-13 13:09 | OPERATIVE NOTE ---
PROCEDURE DATE: 03/13/2019 PREOPERATIVE DIAGNOSIS: Degenerative joint disease, left knee. POSTOPERATIVE DIAGNOSIS: Degenerative joint disease, left knee. PROCEDURE PERFORMED: Left total knee replacement. SURGEON: Robert Barrow MD. BALE COVERER: JOLENE Ramirez. Mr. Galvan was necessary for proper retraction and manipulation in the case. ANESTHESIA: General. COMPLICATION: None. PROCEDURE IN DETAIL: This 54-year-old female presents for left knee replacement. Risks, benefits, and no guarantees were discussed and she is willing to proceed. She was taken to the operating room and satisfactory anesthesia obtained. The left knee was prepped and draped in the usual sterile fashion. A time-out was taken to confirm operative site, procedure and patient. The leg was wrapped with an Esmarch and tourniquet inflated to 400 mmHg. A midline incision was made over the front of the knee and a quad tendon sparing arthrotomy made. The patella was everted and resurfaced with freehand technique and subluxed laterally. The knee was flexed. An intramedullary hole made in the distal femur and the distal femoral cutting block secured in 5 degrees of valgus. Distal femoral resection was made and the femur sized to a DePuy Attune size 6 narrow femoral implant. The 4-in-1 block was secured, and the anterior, posterior, and chamfer cuts sequentially made. The notch was created for posterior stabilized design. Any remaining osteophytes debrided off the femur. A PCL retractor was placed behind the tibia to protect the neurovascular bundle. The knee was flexed. The tibial cutting block secured with extramedullary alignment and the tibial resection made. Flexion and extension gaps were equal with a 7 mm spacer block. The tibia was sized to a size 5 tibial tray. A trial reduction was performed with good range of motion and stability. The patella was sized to a 35 medialized dome patella. The drill holes were placed for the patella and femoral implants and the trial components removed. The bony surfaces were thoroughly irrigated with pulsatile lavage. Cement with a gram of vancomycin was utilized to cement a DePuy Attune size 5 rotating platform tibial base plate. A size 6 narrow left posterior stabilized femoral component, and a 35 medialized dome patella. Excess cement was removed with a [place] elevator. While the cement cured, the joint capsule was injected with Exparel for pain management. A Hemovac drain was placed and brought out through the lateral retinaculum. After curing the cement, a 7 mm thick size 6 posterior stabilized polyethylene bearing was inserted into the knee. Final range of motion was 0 to 100 degrees with midline patellar tracking. Flexion was limited by the obesity of the leg. The wound was copiously irrigated with irrigant. It was closed over the drain in layers with #1 Vicryl in the arthrotomy, 2-0 Vicryl in the subcutaneous, and skin samantha in the skin edges. Sterile dressings completed the closure, and the patient was recovered from anesthesia and transferred to recovery room in stable condition. No intraoperative complications were noted. Instrument count, sponge count was correct at the time of closure. cc: Dany Barrow MD
[2019-03-13] MEDS: KEFZOL 2 GM/D5W 2 GM/50 ML IVPB IV SCH ×2 (15:25→23:55)
[2019-03-13] MEDS: ULTRAM PO SCH ×2 (15:26→22:38)
[2019-03-13] MEDS: TYLENOL PO SCH ×2 (15:26→22:37)
[2019-03-13] MEDS: NS 1,000 ML IV SCH (15:30)
[2019-03-13] MEDS: OXY IR PO PRN (19:01)
[2019-03-13] MEDS ORDERED: PHENERGAN PO PRN (20:47)
[2019-03-13] MEDS ORDERED: SODIUM CHLORIDE 0.9% INJ PRN (20:47)
[2019-03-13] MEDS ORDERED: PHENERGAN IV PRN (20:47)
--- NOTE | 2019-03-13 20:56 | ORTHOPAEDICS PROGRESS NOTE ---
DATE: 03/13/2019 SUBJECTIVE: Ms. Ramirez is seen status post total knee replacement. OBJECTIVE: Currently she is awake and alert. Her x-rays look good. Bandage is clean and dry. She appears to be motor and sensory intact, with good motion of the toes and ankles, and good capillary refill. ASSESSMENT AND PLAN: We will plan on monitoring her and mobilizing her. She can possibly be discharged in the near future. cc: Dany Barrow MD
[2019-03-13] MEDS ORDERED: NON-FORMULARY MED (Celecoxib [Celebrex] 200 MG) PO SCH (21:00)
[2019-03-13] MEDS ORDERED: CELEBREX PO SCH (21:00)
[2019-03-13] MEDS ORDERED: FLU VACCINE IM ONE (21:15)
[2019-03-13] MEDS: LOPRESSOR PO SCH (22:37)
[2019-03-13] MEDS: PERIDEX MT SCH (22:37)
[2019-03-13] MEDS: GLUCOPHAGE XR PO SCH (22:38)
[2019-03-13] MEDS: COLACE PO SCH (22:38)
[2019-03-13] MEDS: HUMALOG SUBQ SCH (22:40)
[2019-03-14] MEDS: OXY IR PO PRN ×3 (02:10→20:48)
[2019-03-14] MEDS: NS 1,000 ML IV SCH ×3 (06:15→17:58)
[2019-03-14] MEDS: ULTRAM PO SCH ×3 (06:15→17:57)
[2019-03-14] MEDS: TYLENOL PO SCH ×3 (06:16→17:56)
[2019-03-14] MEDS: DUONEB (A & A) INH PRN ×5 (06:37→19:55)
[2019-03-14] MEDS: HUMALOG SUBQ SCH ×4 (07:00→20:50)
[2019-03-14 07:01] LABS: CALCIUM 8.1 mg/dL (8.8-10.2); POTASSIUM 4.5 mmol/L (3.5-5.1)
[2019-03-14 07:35] LABS: HEMATOCRIT 32.2 % (37.0-47.0); HEMOGLOBIN 10.3 g/dL (12.0-16.0)
--- NOTE | 2019-03-14 09:28 | ORTHOPAEDICS PROGRESS NOTE ---
DATE: 03/14/2019 Ms. Ramirez seen status post total knee replacement. She is afebrile with stable vital signs this morning. We will plan on mobilizing her today and possibly discharge home later today if she is mobilizing well. There is no signs of DVT. She is stable at present time. cc: Dany Barrow MD
[2019-03-14] MEDS: LOPRESSOR PO SCH ×2 (09:59→21:00)
[2019-03-14] MEDS: MOBIC PO SCH (09:59)
[2019-03-14] MEDS: GLUCOPHAGE XR PO SCH ×2 (09:59→20:49)
[2019-03-14] MEDS: COLACE PO SCH ×2 (10:00→20:49)
[2019-03-14] MEDS: ASPIRIN PO SCH (10:00)
[2019-03-14] MEDS: PRINIVIL PO SCH (10:00)
[2019-03-14] MEDS: PEPCID PO SCH (10:12)
[2019-03-14] MEDS: PERIDEX MT SCH ×2 (10:12→20:51)
--- NOTE | 2019-03-14 12:27 | Diag Imaging Result Doc PS360 ---
EXAM: CHEST-2 VIEWS INDICATION: Cough TECHNIQUE: 3 views COMPARISON: 02/28/2018 FINDINGS: A right chest port is in place with the tip projecting over the right atrium. The lungs are grossly clear. There is no discrete pleural fluid collection or pneumothorax. The cardiac silhouette appears borderline to mildly prominent, probably due to magnification from AP technique. Central vasculature is unremarkable. IMPRESSION: Borderline to mildly prominent cardiac silhouette. No definite acute chest pathology, otherwise. Electronically signed by Dany Alberts 03/14/2019 12:25 PM
[2019-03-15] MEDS: TYLENOL PO SCH ×3 (00:33→11:45)
[2019-03-15] MEDS: ULTRAM PO SCH ×3 (00:33→11:45)
[2019-03-15] MEDS: DUONEB (A & A) INH PRN ×3 (03:33→11:22)
[2019-03-15] MEDS: HUMALOG SUBQ SCH ×2 (06:26→11:27)
[2019-03-15 07:09] LABS: HEMATOCRIT 32.6 % (37.0-47.0); HEMOGLOBIN 10.5 g/dL (12.0-16.0)
[2019-03-15] MEDS: GLUCOPHAGE XR PO SCH (09:26)
[2019-03-15] MEDS: PERIDEX MT SCH (09:26)
[2019-03-15] MEDS: LOPRESSOR PO SCH (09:26)
[2019-03-15] MEDS: PRINIVIL PO SCH (09:27)
[2019-03-15] MEDS: ASPIRIN PO SCH (09:27)
[2019-03-15] MEDS: COLACE PO SCH (09:27)
[2019-03-15] MEDS: PEPCID PO SCH (09:27)
[2019-03-15] MEDS: MOBIC PO SCH (09:27)
[2019-03-15 11:34] VITALS: BP 111/59
--- NOTE | 2019-03-16 04:55 | DISCHARGE SUMMARY ---
ADMISSION DATE: 03/13/2019 DISCHARGE DATE: 03/15/2019 ADMITTING DIAGNOSIS: Degenerative joint disease of the left knee. DISCHARGE DIAGNOSIS: Degenerative joint disease of the left knee. PRINCIPLE PROCEDURES: Left total knee arthroplasty. PAST MEDICAL HISTORY: Includes diabetes type 2, high blood pressure and osteoarthritis. There are also reports of breast cancer. PAST SURGICAL HISTORY: She has had back and neck surgery, , cholecystectomy, hysterectomy, left total knee arthroplasty. ALLERGIES: She is allergic to latex. HOSPITAL COURSE: The patient was taken to the operating room on 03/13/2019 and a left total knee arthroplasty was performed. The patient tolerated procedure well. She was transferred to the recovery room and she did well there. She was brought to the regular surgical floor where mechanical and chemical DVT prophylaxis were performed. Physical therapy was initiated. Routine postop antibiotics were administered. Hemovac drain was removed on postop day 2. There was roughly 50 mL of drainage in the drain. The patient walked about 50 feet with physical therapy without difficulty. The 1st day after surgery, the patient did complain of some dizziness and started developing a cough. She stated she was feeling somewhat achy that day. A flu swab and chest x-ray were performed, both were negative. The patient has been able to spontaneously void since the Cruz catheter was removed. She has transitioned to oral pain medications and has tolerated those well. She denies nausea, vomiting, or diarrhea at this time. There has been a negative Homans sign. No pain with calf squeeze. The bandages have been clean and dry throughout the hospital stay. She was felt ready to be discharged on 03/15/2019. DISPOSITION: She is going to be discharged home with home therapy at this time. FOLLOWUP: She is to follow up with Dr. Barrow in roughly 10 days for recheck and to remove her samantha. Prescriptions were written for pain medications and aspirin twice daily to prevent DVT prophylaxis. We have also placed her on Bactrim twice daily for infection prevention. DISCHARGE INSTRUCTIONS: Home with home therapy at this time. Dictated by JOLENE Ramirez for Dany Barrow MD cc: JOLENE Ramirez MD
== END 2019-03-15 16:07 | disposition home health service (06) | DRG 470 ==
LOC: 4N 05:21 → OR 05:21 → OBSVTOIN 07:48
PROVIDERS: ADMIT Orthopaedic Surgery Adult Reconstructive Orthopaedic Surgery; ATTEND Orthopaedic Surgery Adult Reconstructive Orthopaedic Surgery